=== PATIENT | female | born 1950 | race Caucasian/White ===

== ENCOUNTER 2022-09-20 12:57 | Emergency (ER) | payer MEDICARE ==
[~2022-09-20] VITALS: Ht 162.6 cm; Wt 65.0 kg
[2022-09-20] VITALS (16 sets, daily range): BP systolic 106–153; BP diastolic 55–114
[~2022-09-20 12:57] MED LIST: AUGMENTIN875TAB PO; CLARITIN10 M1 PO; DOXYCYCL HYC100 MG PO; FLONASE NASAL50 MCG; PREDNISONE10 MG PO; RAYOS5 MG PO
[2022-09-20] MEDS ORDERED: LOSARTAN POTASS50 MG PO (13:16)
[2022-09-20 13:24] LABS: HEMATOCRIT 42.9 % (37.0-47.0); IMMATURE GRANULOCYTES 0.4 % (0.0-5.0); MEAN CELL VOLUME 90.7 fL CALC (80.0-100.0); MEAN CORPUSCULAR HGB 29.6 pG CALC (26.0-32.0); MEAN CORPUSCULAR HGB CONC 32.6 g/dL CAL (32.0-36.0); NEUT# 4.95 thou/uL (2.00-7.15); RED BLOOD COUNT 4.73 mill/uL (4.20-5.60); RED CELL DISTRI WIDTH 15.4 % (11.5-15.5)
[2022-09-20 13:39] LABS: ALBUMIN 4.4 g/dL (3.2-5.0); ALKALINE PHOSPHATASE 83 u/l (38-126); ANION GAP 12 (6-22 (CALC)); BILIRUBIN, TOTAL 0.4 mg/dL (0.0-1.4); BUN 18 mg/dL (8-23); BUN/CREATININE RATIO 16 (12-20 (CALC)); CARBON DIOXIDE 24 mmol/l (22-30); CHLORIDE 106 mmol/l (95-108); CREATININE 1.1 mg/dL (0.5-1.0); GFR FOR AFR.AMER. 59 ML/MIN (>=60 (CALC)); GFR OTHER RACES 49 ML/MIN (>=60 (CALC)); POTASSIUM 4.2 mmol/l (3.5-5.1); SGOT/AST 26 u/l (9-36); SODIUM 137 mmol/l (137-146); TOTAL PROTEIN 7.5 g/dL (6.3-8.2)
[2022-09-20 15:50] LABS: TSH, 3RD GENERATION 2.98 uIU/mL (0.47 - 4.68)
== END 2022-09-20 16:33 | disposition home or self-care (01) ==
LOC: ED 12:57
PROVIDERS: Emergency Medicine
DX: R07.89 Other chest pain (principal); F17.210 Nicotine dependence, cigarettes, uncomplicated; M35.3 Polymyalgia rheumatica

== ENCOUNTER 2024-11-01 10:58 | Observation (INO) | payer MEDICARE ==
[2024-11-01] VITALS (29 sets, daily range): BP systolic 114–172; BP diastolic 56–126
[~2024-11-01] VITALS: Ht 162.6 cm; Wt 58.0 kg
[~2024-11-01 10:58] MED LIST changes: +LOSARTAN POTASS50 MG PO; +PREDNISONE2.5 MG PO; +ROSUVASTATIN CA10 MG PO
[2024-11-01 11:30] LABS: BASO% 0.6 % (0-3); HEMATOCRIT 43.1 % (37.0-47.0); HEMOGLOBIN 13.7 g/dl (12.0-16.0); IMMATURE GRANULOCYTES 0.2 % (0.0-5.0); LYMPH% 32.7 % (15-41); MEAN CELL VOLUME 93.3 fL CALC (80.0-100.0); MEAN CORPUSCULAR HGB 29.7 pG CALC (26.0-32.0); MEAN CORPUSCULAR HGB CONC 31.8 g/dL CAL (32.0-36.0); MONO% 9.6 % (2-13); NEUT# 4.55 thou/uL (2.00-7.15); NEUT% 54.9 % (42-76); RED BLOOD COUNT 4.62 mill/uL (4.20-5.60); RED CELL DISTRI WIDTH 15.3 % (11.5-15.5)
[2024-11-01 11:59] LABS: ALBUMIN 4.2 g/dL (3.2-5.0); ALKALINE PHOSPHATASE 64 u/l (38-126); ANION GAP 12 (6-22 (CALC)); BILIRUBIN, TOTAL 0.8 mg/dL (0.02-1.3); BUN 19 mg/dL (8-23); BUN/CREATININE RATIO 17 (12-20 (CALC)); CARBON DIOXIDE 27 mmol/l (22-30); CHLORIDE 106 mmol/l (95-108); CREATININE 1.1 mg/dL (0.5-1.0); ESTIMATED GFR 53 ML/MIN (>=90 (CALC)); POTASSIUM 3.7 mmol/l (3.5-5.1); SGOT/AST 25 u/l (9-36); SODIUM 142 mmol/l (137-146); TOTAL PROTEIN 7.4 g/dL (6.3-8.2)
--- NOTE | 2024-11-01 16:42 | NUR ---
Report called to [facility], 2nd floor.
[2024-11-01] MEDS ORDERED: MAGNESIUM HYDROXIDE 30 ML UDC PO PRN (16:55)
[2024-11-01] MEDS ORDERED: LACTATED RINGER'S 1,000 ML IV PRN (16:55)
[2024-11-01] MEDS ORDERED: ACETAMINOPHEN 325 MG/TAB PO PRN (16:55)
[2024-11-01] MEDS ORDERED: PREDNISONE PO SCH (16:56)
[2024-11-01 17:10] LABS: CHOLESTEROL HDL RATIO 6.2 (<4.4 (CALC))
--- NOTE | 2024-11-01 17:39 | NUR ---
REPORT RECEIVED FROM ALLIE IN ED, PT ARRIVED ON UNIT @ 1700 TRANSPORTED VIA WC AND SETTLED IN ROOM. ALERT AND ORIENTED X 4, DENIES PAIN,TELE MONITOR IN PLACE, CALL BERNARDO IN REACH. ORIENTED TO ROOM AND CALL BERNARDO, MEAL DELIVERED.
[2024-11-01 17:41] LABS: TSH, 3RD GENERATION 2.99 uIU/mL (0.47 - 4.68)
[2024-11-01] MEDS ORDERED: ENOXAPARIN SODIUM 40 MG/0.4 ML SYR SC SCH (21:00)
[2024-11-01] MEDS ORDERED: PANTOPRAZOLE SODIUM Sesquihydr 40 MG/TAB PO SCH (21:55)
[2024-11-02 00:13] VITALS: BP 168/66
[2024-11-02 00:15] VITALS: BP 167/81
[2024-11-02 03:58] VITALS: BP 130/59
[2024-11-02 05:42] LABS: BASO% 0.5 % (0-3); EOS% 1.9 % (0-8); HEMATOCRIT 39.3 % (37.0-47.0); IMMATURE GRANULOCYTES 0.4 % (0.0-5.0); LYMPH% 43.2 % (15-41); MEAN CELL VOLUME 94.5 fL CALC (80.0-100.0); MEAN CORPUSCULAR HGB 28.8 pG CALC (26.0-32.0); MEAN CORPUSCULAR HGB CONC 30.5 g/dL CAL (32.0-36.0); MONO% 10.5 % (2-13); NEUT# 3.37 thou/uL (2.00-7.15); NEUT% 43.5 % (42-76); RED BLOOD COUNT 4.16 mill/uL (4.20-5.60); RED CELL DISTRI WIDTH 15.3 % (11.5-15.5)
[2024-11-02 06:00] LABS: BILIRUBIN, TOTAL 0.6 mg/dL (0.02-1.3); POTASSIUM 4.1 mmol/l (3.5-5.1)
[2024-11-02 06:01] LABS: ALBUMIN 3.3 g/dL (3.2-5.0); TOTAL PROTEIN 5.9 g/dL (6.3-8.2)
[2024-11-02 06:59] VITALS: BP 124/69
--- NOTE | 2024-11-02 07:51 | NUR ---
SHIFT CHANGE REPORT, PT SLEEPING, BREATHING EVEN AND NON LABORED, NO SIGN DISCOMFORT, TELE MONITOR IN PLACE, CALL BERNARDO IN REACH AND BED LOCKED IN LOWEST POSITION.
--- NOTE | 2024-11-02 09:05 | NUR ---
CONTACTED DR SANTOS'S OFFICE IN REFERENCE TO A CARDIOLOGY CONSULT. I SPOKE WITH IVAN AT 0905 HRS.
[2024-11-02] MEDS ORDERED: LORazepam 2 MG/ML IV SCH (09:30)
--- NOTE | 2024-11-02 10:25 | NUR ---
INFORMED OF MRI PROCEDURE AND AGREES TO HAVE IT DONE, BEING TRANSPORTED OFF UNIT AT THIS TIME VIA W/C TO PROCEDURE.
--- NOTE | 2024-11-02 11:21 | NUR ---
RETURNED FROM PROCEDURE, SETTLED IN BED AND SLEEPING SOUNDLY WITH NON-LABORED BREATHING.
--- NOTE | 2024-11-02 15:01 | NUR ---
Discharge instructions given. Patient verbalizes understanding of same. Discharged in good condition via Wheelchair to Home with family. All belongings sent with pt.
--- NOTE | 2024-11-05 12:19 | NUR ---
Discharge follow up call completed 11/05/24. Pt states she is doing well since discharge. Pt says she is waiting for all of her test results to reach her PCP before making a follow upappointment. Pt went to child care lead teacher on Saturday and they gave her a monitor to wear but did not see her for her scheduled appointment. No needs or concerns verbalized by patient at this time.
== END 2024-11-02 14:56 | disposition home or self-care (01) ==
LOC: ED 10:58 → ED-I 12:20 → ED 12:40 → MS2 12:41
PROVIDERS: Family Medicine; ADMIT Internal Medicine; ATTEND Internal Medicine
DX: R55 Syncope and collapse (principal); M35.3 Polymyalgia rheumatica; I35.1 Nonrheumatic aortic (valve) insufficiency; I71.21 Aneurysm of the ascending aorta, without rupture; E78.5 Hyperlipidemia, unspecified; E03.9 Hypothyroidism, unspecified; F41.9 Anxiety disorder, unspecified; F32.A Depression, unspecified; K21.9 Gastro-esophageal reflux disease without esophagitis; Z79.52 Long term (current) use of systemic steroids; Z72.0 Tobacco use
CPT/HCPCS: G0378; J1650; J2060

== ENCOUNTER 2024-12-18 07:27 | Emergency (ER) | payer MEDICARE ==
[~2024-12-18] VITALS: Ht 162.6 cm; Wt 52.0 kg
[2024-12-18] VITALS (21 sets, daily range): BP systolic 80–177; BP diastolic 55–127
[2024-12-18] MEDS ORDERED: ONDANSETRON HCl 4 MG/2 ML SDV IV ONE (07:55)
[2024-12-18] MEDS ORDERED: MORPHINE SULFATE 4 MG/ML VIAL IV ONE ×2 (07:55→09:05)
[2024-12-18 08:01] LABS: BASO% 0.3 % (0-3); EOS% 0.3 % (0-8); HEMATOCRIT 43.8 % (37.0-47.0); HEMOGLOBIN 13.7 g/dl (12.0-16.0); IMMATURE GRANULOCYTES 0.4 % (0.0-5.0); LYMPH% 16.9 % (15-41); MEAN CORPUSCULAR HGB 29.4 pG CALC (26.0-32.0); MEAN CORPUSCULAR HGB CONC 31.3 g/dL CAL (32.0-36.0); MONO% 9.9 % (2-13); NEUT# 8.43 thou/uL (2.00-7.15); NEUT% 72.2 % (42-76); RED BLOOD COUNT 4.66 mill/uL (4.20-5.60); RED CELL DISTRI WIDTH 15.7 % (11.5-15.5)
[2024-12-18 08:20] LABS: POTASSIUM 4.7 mmol/l (3.5-5.1)
[2024-12-18 08:23] LABS: ALBUMIN 4.4 g/dL (3.2-5.0); BILIRUBIN, TOTAL 0.9 mg/dL (0.02-1.3); TOTAL PROTEIN 7.5 g/dL (6.3-8.2)
[2024-12-18] MEDS ORDERED: HYDROmorphone HCL 2 MG/AMP IV ONE (10:20)
== END 2024-12-18 13:23 | disposition short-term general hospital (02) ==
LOC: ED 07:27
PROVIDERS: Family Medicine
DX: I71.21 Aneurysm of the ascending aorta, without rupture (principal); I71.23 Aneurysm of the descending thoracic aorta, without rupture; R07.9 Chest pain, unspecified; M35.3 Polymyalgia rheumatica; Z72.0 Tobacco use
CPT/HCPCS: J1171; J2405; Q9967